=== PATIENT | male | born 1970 | race Two or more races ===

== ENCOUNTER 2024-08-31 07:23 | Emergency (ER) | payer MEDICAID, SELFPAY ==
[2024-08-31 07:34] VITALS: BP 146/82; PULSE 69; RESP 18; TEMP 37.2; O2SAT 98
--- NOTE | 2024-08-31 07:34 | EKG_ITS ---
[facility] Test Date: 2024-08-31 Pat Name: FRANCISCO WRIGHT Department: Room: - Gender: Male [place] [employer]: : 1970 Requested By: Cathy Burt Order Number: [id number] Reading MD: Cathy Burt Measurements Intervals [place] Rate: 65 P: -17 NV: 145 QRS: 63 QRSD: 93 T: 62 QT: 352 QTc: 368 Interpretive Statements SINUS RHYTHM EARLY REPOLARIZATION [ST ELEVATION WITH NORMALLY INFLECTED T-WAVE] No previous ECG available for comparison /store/S0/[id number].pdf
--- NOTE | 2024-08-31 07:35 | PD.EDURI ---
Upper Respiratory Inf. RME/HPI General Chief Complaint: Dental/Oral/Throat Stated Complaint: Sore throat, cough, fever Time Seen by Provider: 08/31/24 07:26 Arrival date/time: 08/31/24 07:23 Limitations: no limitations RME / HPI RME / HPI Narrative: DR. GLORIA FABIAN ED EVALUATION: 53-year-old male with no significant past medical history presents to the Emergency Department with cough, congestion, sore throat, chest pain, fever, and chills. Onset of symptoms 3 days. Patient denies diarrhea or vomiting. 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 No recent travel and no known allergies. Related Data Previous Rx's ?Medication ?Instructions ?Recorded ibuprofen 800 mg tablet 800 mg PO Q8H PRN pain #10 tabs 08/31/24 Allergies Allergy/AdvReac Type Severity Reaction Status Date / Time No Known Allergies Allergy Verified 08/31/24 07:27 Review of Systems Review of Systems Systems Reviewed: All systems reviewed, normal except as documented Past Medical History Social History SMOKING STATUS: Never smoker SUBSTANCE USE: does not use ALCOHOL: Never ED Exam General Limitations: Present no limitations General appearance: Present alert and in no apparent distress Head Head exam: Present atraumatic, normocephalic and normal inspection Eye Eye exam: Present normal appearance, PERRL and EOMI ENT ENT exam: Present normal exam, mucous membranes moist and other (oropharynx is red, uvula is midline, no stridor) Neck Neck exam: Present normal inspection, full ROM and trachea midline Chest Chest inspection: Present normal inspection and symmetric chest wall rise Respiratory Respiratory exam: Present normal lung sounds bilaterally Cardiovascular Cardiovascular exam: Present regular rate, normal rhythm and normal heart sounds Abdominal Exam Abdominal exam: Present soft and normal bowel sounds Extremities Exam Extremities exam: Present normal inspection and full ROM; Absent pedal edema Back Exam Back exam: Present normal inspection and full ROM Neurological Exam Neurological exam: Present alert, oriented X3 and CN II-XII intact Psychiatric Psychiatric exam: Present normal affect and normal mood Skin Skin exam: Present warm, dry, intact and normal color Course Quality Measures none Orders Category Date Time Status Bedside COVID-19 Antigen Test NOW Care 08/31/24 07:34 Completed Bedside Influenza A&B Antigen Test NOW Care 08/31/24 07:34 Completed EKG (ED ONLY) *Do not use* NOW Care 08/31/24 07:34 Completed CXR2 [XR chest 2V] Stat Exams 08/31/24 07:34 Completed EKG (ED Only) Stat Exams 08/31/24 07:34 Draft CBC Stat Lab 08/31/24 07:45 Completed CMP [Comprehensive Metabolic Panel] Stat Lab 08/31/24 07:45 Completed Strep A Rapid Stat Lab 08/31/24 09:50 Completed Troponin I Stat Lab 08/31/24 07:45 Completed Ketorolac Inj [Toradol Inj] Med 08/31/24 07:34 Discontinued 15 mg IM X1 ONE MethylPREDNISolone.* [SoluMEDROL Inj] Med 08/31/24 07:34 Discontinued 125 mg IM X1 ONE Vital Signs Vital signs: Vital Signs Temperature 99.0 F 08/31/24 07:34 Pulse Rate 69 08/31/24 07:34 Respiratory Rate 18 08/31/24 07:34 Blood Pressure 146/82 H 08/31/24 07:34 Pulse Oximetry (%) 98 08/31/24 07:34 Oxygen Delivery Method Room Air 08/31/24 07:34 Upper Respiratory Infection MDM Narrative MDM Narrative:: I, Mary Apodaca am scribing for and in the presence of Dr. Ortiz. Patient data External records reviewed:: [facility] previous records Clinical information provided by:: patient Social determinants that could affect healthcare access:: none Patient has the following chronic illnesses:: Denies any PMHx, surgeries, daily medications, or known allergies. How is presenting disease/condition affected by chronic disease/condition?: no chronic disease Evaluation data The following diagnostics were reviewed and interpreted by me:: lab results, radiology exam(s) and EKG tracing(s) (My interpretation: EKG performed at 0737 hours, sinus rhythm, rate 65, early repolarization) Lab and/or radiology exams considered but not ordered:: none Interpretation Summary: Procedure(s): XR chest 2V Accession Number(s): [id number] cc: Martin Whitaker MD; Miguel Rizzo MD; Cathy Ortiz MD~ Examination: PA lateral chest 2 views TECHNIQUE: Upright PA and lateral chest 2 views Date and time: August 31, 2024 0807 hours INDICATIONS: Coughing fever beginning 3 days ago. FINDINGS: Normal heart size. Lungs are clear. The osseous structures are intact. IMPRESSION: No active disease. Dictated By: Miguel Rizzo MD Medications / Prescriptions Medications or Prescriptions considered but not ordered:: none Medication administrations:: Medication Administration History Discontinued Medications Ketorolac Tromethamine (Ketorolac Inj 60 Mg/2 Ml Vial) 15 mg IM X1 ONE Stop: 08/31/24 07:35 Last Admin: 08/31/24 08:10 Dose: 15 mg Documented By: ED Methylprednisolone Sodium Succinate (Methylprednisolone Sod Succ 62.5 Mg/Ml 2ml Vial) 125 mg IM X1 ONE Stop: 08/31/24 07:35 Last Admin: 08/31/24 08:10 Dose: 125 mg Documented By: ED see above Consultations Consultation(s) initiated? (list below): Yes Consultation #1 (Physician, Specialty, Details): Discussed test HPI, PMHx, lab, radiology results and/or management with special forces officer Dr. Cartwright. Will follow-up with the patient outpatient. Recommended stress test, echocardiogram, and follow up labs. Time: 10:40 Diagnosis Upper Respiratory Differential Diagnosis: other (viral pneumonia, bacterial pneumonia, and viral upper respiratory infection) Most likely diagnosis given after review of the tests above:: Pericarditis Admission Indicated Admission indicated?: not indicated Admission Request Was there a request for admission?: No Disposition Plan Disposition Plan: Discharge Discharge Attestation Discharge Attestation: The patient and all family members were given an opportunity to ask questions and understood the discharge instructions. Discharge instructions specifically effects, indications for sooner follow up or return to the emergency department, and the expected course of current diagnosis. Patient condition: Stable Discharge Plan Plan Patient Disposition: HOME (Self Care) Prescriptions/Referrals Prescriptions/Med Rec: New ibuprofen 800 mg tablet 800 mg PO Q8H PRN (Reason: pain) Qty: 10 0RF Discontinued ibuprofen 600 mg tablet 600 mg PO Q6H PRN (Reason: fever or pain) Qty: 30 0RF Referrals: Martin Whitaker MD [Primary Care Provider] - In 1 week Gladis Cartwright MD [Physician] - 09/01/24 (For stress test, echocardiogram, and follow up labs.) Problem List Clinical Impression: Pericarditis Patient/Caregiver Discharge Instructions Education Materials: ED Pericarditis Additional Instructions: Por favor establecer cuidado con el Dr Cartwright cardiologo y discutir destiny prueba de stress y echocardiogram. Print Language: Ethiopian Stand Alone Forms: Wilda Award Info., Work/School Release, Patient Portal Info Letter
[2024-08-31] MEDS: MethylPREDNISolone SOD SUCC 62.5 MG/ML 2ML VIAL 125 MG IM (08:10)
[2024-08-31] MEDS: KETOROLAC INJ 60 MG/2 ML VIAL 15 MG IM (08:10)
[2024-08-31 08:18] LABS: Basophils # (Auto) 0.1 Thou/mm3 (0.0-0.2); Basophils % (Auto) 1 % (0-2.5); Eosinophils # (Auto) 0.3 Thou/mm3 (0.0-0.5); Eosinophils % (Auto) 4 % (0-10); Hematocrit 43.8 % (41.0-53.0); Hemoglobin 15.3 g/dL (13.5-16.0); Immature Granulocytes Auto 0.02 Thou/mm3 (0.00-0.00); Lymphocytes # (Auto) 1.3 Thou/mm3 (1.0-4.8); Lymphocytes % (Auto) 18 % (10-50); Mean Corpuscular HGB Conc 34.9 g/dl (31.0-37.0); Mean Corpuscular Hemoglobin 32.0 pg (25.0-35.0); Mean Corpuscular Volume 92 fL (80-100); Monocytes # (Auto) 0.9 Thou/mm3 (0.0-0.8); Monocytes % (Auto) 12 % (0-12); Neutrophils # (Auto) 4.8 Thou/mm3 (1.8-7.7); Neutrophils % (Auto) 65 % (37-80); Nucleated Red Blood Cell # 0.00 Thou/mm3 (0.00-0.00); Nucleated Red Blood Cell % 0 /100 WBC (0); Platelet Count 295 Thou/mm3 (140-440); RDW Standard Deviation 44.1 fL (35.1-43.9); Red Blood Count 4.78 Miln/mm3 (4.50-5.90); White Blood Count 7.4 Thou/mm3 (3.8-10.6)
[2024-08-31 08:40] LABS: Alanine Aminotransferase 33 U/L (10-49); Albumin, Serum 4.5 gm/dL (3.5-5.0); Albumin/Globulin Ratio 1.4 (1.2-2.2); Alkaline Phosphatase 68 U/L (46-116); Anion Gap 11 (7-16); Aspartate Amino Transferase 28 U/L (0-34); BUN/Creatinine Ratio 9 Ratio (12-20); Bilirubin,Total 0.8 mg/dL (0.3-1.2); Blood Urea Nitrogen 9 mg/dL (9-23); Calcium 9.5 mg/dL (8.3-10.6); Calcium (Corrected) 9.5 mg/dL (8.5-10.1); Carbon Dioxide 25.8 mMol/L (20.0-31.0); Chloride 103 mMol/L (98-107); Creatinine (Component) 1.0 mg/dL (0.6-1.3); Globulin 3.2 gm/dL (2.3-3.5); Glucose 116 mg/dL (74-106); Osmolality,Calculated 279 (275-295); Potassium 4.2 mMol/L (3.4-5.1); Sodium 140 mMol/L (136-145); Total Protein 7.7 gm/dL (5.7-8.2); Troponin I < 0.020 ng/mL (0.0-0.045); eGFR > 60 See Note
[2024-08-31 10:27] LABS: Strep A Rapid Negative (Negative)
[2024-08-31 10:29] VITALS: BP 138/72; PULSE 65; RESP 18; TEMP 36.8; O2SAT 99
== END 2024-08-31 11:41 | disposition home or self-care (01) ==
PROVIDERS: Emergency Provider Emergency Medicine; PCP Family Medicine
DX: I31.9 Disease of pericardium, unspecified (principal); R05.9 Cough, unspecified; R50.9 Fever, unspecified
CPT/HCPCS: 36415; 71046; 80053; 84484; 85025; 87400; 87651; 87811; 93005; 96372; 99283; J1885; J2919